=== PATIENT | male | born 1990 | race Caucasian/White ===

== ENCOUNTER 2021-10-13 20:24 | Emergency (ER) | payer OTHER, SELFPAY ==
[2021-10-13 21:34] VITALS: BP 131/83; PULSE 70; RESP 18; TEMP 36.8; O2SAT 98; BMI 21.7
== END 2021-10-14 00:25 | disposition left against medical advice (07) ==
PROVIDERS: Emergency Provider Emergency Medicine
CPT/HCPCS: 99281